=== PATIENT | female | born 1975 | race Caucasian/White ===

== ENCOUNTER → 2020-05-08 | Outpatient (CLI) | payer BC ==
[~2020-05-08] MED LIST: ANUCORT HC25 MG REC; ASPIRIN 81M81 MG/TA2 PO; CRESTOR40 MG PO; DARVOCET-N-101 UDTAB PO; FORT1000TA PO; GLUCOPHAGE1000 MG PO; IMDUR 30MG30 MG/TAB PO; JANUVIA 100MG100 MG PO; JARDIANCE10 PO; LANTUS100 U/ML SQ; LIPITOR 10MG10 MG PO; LORTAB 5/500 501 TAB PO; NAPROXEN 3375 MG/TAB PO; NEURONTIN300 MG/CAP PO; NITROSTAT0.4 MG/TAB SL; NO HOME MEDICATIONS; NOVOLOG 100U100 U/M1 SQ; OZEMPIC0.25 MG/0. SQ; PRINIVIL5 MG PO; PROTONIX 40MG T40 MG PO
== END ==
LOC: COL.LAB 10:20
DX: Z20.822 Contact with and (suspected) exposure to COVID-19 (principal)

== ENCOUNTER → 2020-07-27 | Outpatient (CLI) | payer OTHER ==
[2020-07-27 06:01] LABS: ALBUMIN 4.1 gm/dL (3.5-5.0); BILIRUBIN,TOTAL 0.3 mg/dL (0.0-1.0); CHOLESTEROL RISK RATIO 2.1; CREATININE, serum 0.53 (0.52-1.25); TOTAL PROTEIN 7.1 gm/dL (6.4-8.2)
== END ==
LOC: COL.LAB 05:26
PROVIDERS: Internal Medicine
DX: E11.65 Type 2 diabetes mellitus with hyperglycemia (principal); E78.2 Mixed hyperlipidemia

== ENCOUNTER 2020-08-08 10:21 | Emergency (ER) | payer OTHER ==
[~2020-08-08] VITALS: Ht 160 cm; Wt 80.0 kg
[2020-08-08 10:45] VITALS: TEMP 97.7
[2020-08-08 11:14] LABS: BASO % 0.4 % (0.0-2.0); EOS # 0.1 (0.0-0.7); EOS % 1.5 % (0-4.0); GRAN # 2.8 (1.4-6.5); GRAN % 61.4 % (42.2-75.2); HEMATOCRIT 37.5 % (37.0-47.0); HEMOGLOBIN 11.8 g/dl (12.5-16.0); LYMPH # 1.4 (1.2-3.4); LYMPH % 30.5 % (20.0-51.0); MEAN CELL VOLUME 83 fl (80.0-100.0); MEAN CORPUSCULAR HEMOGLOBIN 26 pg (27.0-31.0); MEAN CORPUSCULAR HGB CONC 32 g/dl (33.0-37.0); MEAN PLATELET VOLUME 10.6 fl (7.4-10.4); MONO # 0.3 (0.1-0.6); PLATELET COUNT 184 K/mm3 (130-400); RED BLOOD COUNT 4.52 M/mm3 (4.10-5.30); REDCELL DISTRIBUTION WIDTH-CV 13.1 % (11.5-14.5)
[2020-08-08 11:22] LABS: ALANINE AMINOTRANSFERASE 41 U/L (4-34); ALBUMIN 4.3 gm/dL (3.5-5.0); ALKALINE PHOSPHATASE 62 U/L (50-136); ANION GAP 11 mmol/L (7-16); AST,SGOT 41 U/L (15-37); BILIRUBIN,TOTAL 0.4 mg/dL (0.0-1.0); BLOOD UREA NITROGEN 9 mg/dL (7-17); CALCIUM 9.3 mg/dL (8.4-10.2); CARBON DIOXIDE 21 mmol/L (22-30); CHLORIDE 108 mmol/L (98-107); CREATININE, serum 0.53 (0.52-1.25); GLUCOSE 190 mg/dL (74-106); POTASSIUM 3.8 mmol/L (3.4-5.0); PROTHROMBIN TIME 11.3 SECONDS (9.7-12.8); SODIUM 140 mmol/L (137-145); TOTAL PROTEIN 7.6 gm/dL (6.4-8.2)
[2020-08-08 11:25] LABS: PARTIAL THROMBOPLASTIN TIME 30.4 SECONDS (26.0-37.0)
[2020-08-08 11:26] LABS: D-DIMER < 200.00 ng/mLDDu (200-230)
[2020-08-08 11:35] LABS: TROPONIN-I < 0.012 ng/mL (0.000-0.035)
[2020-08-08 12:30] VITALS: BP 121/80; PULSE 80
== END 2020-08-08 12:30 | disposition home or self-care (01) ==
LOC: COL.ER 10:21
PROVIDERS: Family Medicine
DX: R07.9 Chest pain, unspecified (principal); R06.02 Shortness of breath; E11.9 Type 2 diabetes mellitus without complications; Z79.4 Long term (current) use of insulin; Z20.822 Contact with and (suspected) exposure to COVID-19; Z79.82 Long term (current) use of aspirin; Z88.6 Allergy status to analgesic agent; Z87.891 Personal history of nicotine dependence

== ENCOUNTER → 2020-08-08 | Outpatient (REF) | LOC: COL.LAB 07:49 | DX: Z20.822 Contact with and (suspected) exposure to COVID-19 (principal) ==

== ENCOUNTER → 2020-10-08 | Outpatient (CLI) | payer OTHER | LOC: ZCOL.LAB 20:37 | DX: R06.02 Shortness of breath (principal) ==

== ENCOUNTER → 2020-10-09 | Outpatient (CLI) | payer OTHER ==
[2020-10-08 21:27] LABS: CALCIUM 8.9 mg/dL (8.4-10.2); CREATININE, serum 0.64 (0.52-1.25); POTASSIUM 4.3 mmol/L (3.4-5.0)
== END ==
LOC: COL.PUL 09:44
PROVIDERS: Internal Medicine Pulmonary Disease
DX: R06.02 Shortness of breath (principal); Z98.890 Other specified postprocedural states
CPT/HCPCS: Q9967

== ENCOUNTER → 2021-01-17 | Outpatient (CLI) | payer OTHER | LOC: COL.PUL 09:46 | DX: R06.02 Shortness of breath (principal); Z87.891 Personal history of nicotine dependence | CPT/HCPCS: J7674 ==

== ENCOUNTER → 2021-04-02 | Outpatient (CLI) | payer OTHER | LOC: MC.RAD 06:55 | DX: Z12.31 Encounter for screening mammogram for malignant neoplasm of breast (principal) ==

== ENCOUNTER 2021-09-17 04:34 | Emergency (ER) | payer BC ==
[~2021-09-17] VITALS: Ht 160 cm; Wt 86.4 kg
[2021-09-17 04:37] VITALS: TEMP 97.9
[2021-09-17 05:12] LABS: BASO % 0.4 % (0.0-2.0); EOS # 0.1 K/mm3 (0.0-0.7); EOS % 1.4 % (0.0-4.0); GRAN # 3.4 K/mm3 (1.4-6.5); GRAN % 49.3 % (42.2-75.2); HEMATOCRIT 39.8 % (37.0-47.0); HEMOGLOBIN 12.2 g/dl (12.5-16.0); LYMPH # 2.9 K/mm3 (1.2-3.4); LYMPH % 41.5 % (20.0-51.0); MEAN CELL VOLUME 73 fl (80.0-100.0); MEAN CORPUSCULAR HEMOGLOBIN 23 pg (27-31); MEAN CORPUSCULAR HGB CONC 31 g/dl (33.0-37.0); MEAN PLATELET VOLUME 10.6 fl (7.4-10.4); MONO # 0.5 K/mm3 (0.1-0.6); PLATELET COUNT 237 K/mm3 (130-400); RED BLOOD COUNT 5.43 M/mm3 (4.10-5.30); REDCELL DISTRIBUTION WIDTH-CV 14.1 % (11.5-14.5)
[2021-09-17 05:13] LABS: COLLECTION METHOD CLEAN CATCH
[2021-09-17 05:20] LABS: SQUAMOUS EPITHELIAL 0-2 /hpf (0-10); URINE BACTERIA Rare /hpf (NONE SEEN); URINE RBC 0-2 /hpf (0-2)
[2021-09-17 05:21] LABS: PH 5 (5-8); URINE APPEARANCE Clear (CLEAR/HAZY); URINE BLOOD Negative (NEGATIVE); URINE COLOR Yellow (YELLOW); URINE GLUCOSE 3+ (NEGATIVE); URINE KETONE Negative (NEGATIVE); URINE NITRATE Negative (NEGATIVE); URINE PROTEIN(semi-quant) Negative (NEGATIVE); URINE UROBILINOGEN Negative (NEGATIVE)
[2021-09-17 05:28] LABS: ALANINE AMINOTRANSFERASE 26 U/L (0-55); ALBUMIN 3.8 gm/dL (3.5-5.0); ALKALINE PHOSPHATASE 96 U/L (40-150); ANION GAP 12 mmol/L (7-16); AST,SGOT 21 U/L (5-34); BILIRUBIN,TOTAL 0.2 mg/dL (0.2-1.2); BLOOD UREA NITROGEN 14 mg/dL (7-19); CARBON DIOXIDE 17 mmol/L (22-29); CHLORIDE 107 mmol/L (98-107); CREATININE, serum 0.79 mg/dL (0.57-1.11); GLUCOSE 265 mg/dL (70-99); POTASSIUM 4.1 mmol/L (3.5-4.5); SODIUM 136 mmol/L (136-145); TOTAL PROTEIN 7.9 gm/dL (6.2-8.1)
[2021-09-17 05:48] LABS: TSH w REFLEX 3.477 uIU/mL (0.350-4.940)
[2021-09-17 05:49] LABS: TROPONIN-I < 0.010 ng/mL (0.00-0.033)
[2021-09-17 06:05] VITALS: BP 140/85
[2021-09-17 06:43] VITALS: PULSE 79
== END 2021-09-17 06:43 | disposition home or self-care (01) ==
LOC: COL.ER 04:34
PROVIDERS: Emergency Medicine
DX: R53.83 Other fatigue (principal); R53.81 Other malaise; E66.9 Obesity, unspecified; Z68.33 Body mass index [BMI] 33.0-33.9, adult; Z86.16 Personal history of COVID-19; Z91.040 Latex allergy status
CPT/HCPCS: J7120

== ENCOUNTER → 2022-04-03 | Outpatient (CLI) | payer BC ==
[2022-04-03 22:13] LABS: BASO % 0.5 % (0.0-2.0); EOS # 0.1 K/mm3 (0.0-0.7); EOS % 1.5 % (0.0-4.0); GRAN # 3.2 K/mm3 (1.4-6.5); GRAN % 54.5 % (42.2-75.2); HEMATOCRIT 39.8 % (37.0-47.0); HEMOGLOBIN 12.1 g/dl (12.5-16.0); LYMPH # 2.2 K/mm3 (1.2-3.4); LYMPH % 37.6 % (20.0-51.0); MEAN CELL VOLUME 75 fl (80.0-100.0); MEAN CORPUSCULAR HEMOGLOBIN 23 pg (27-31); MEAN CORPUSCULAR HGB CONC 30 g/dl (33.0-37.0); MEAN PLATELET VOLUME 11.7 fl (7.4-10.4); MONO # 0.3 K/mm3 (0.1-0.6); MONO % 5.6 % (1.7-9.3); PLATELET COUNT 265 K/mm3 (130-400); RED BLOOD COUNT 5.29 M/mm3 (4.10-5.30); REDCELL DISTRIBUTION WIDTH-CV 14.1 % (11.5-14.5)
== END ==
LOC: ZCOL.LAB 22:00
PROVIDERS: Registered Nurse
DX: D64.9 Anemia, unspecified (principal)

== ENCOUNTER → 2022-04-03 | Outpatient (CLI) | payer BC | LOC: COL.LAB 12:25 | DX: E78.5 Hyperlipidemia, unspecified (principal); R06.02 Shortness of breath ==

== ENCOUNTER → 2022-04-03 | Outpatient (CLI) | payer BC ==
[2022-04-03 13:01] LABS: ALBUMIN 4.2 gm/dL (3.5-5.0); BILIRUBIN,TOTAL 0.5 mg/dL (0.2-1.2); CHOLESTEROL RISK RATIO 6.1; CREATININE, serum 0.8 mg/dL (0.57-1.11); POTASSIUM 4.3 mmol/L (3.5-4.5); TOTAL PROTEIN 8.3 gm/dL (6.2-8.1)
== END ==
LOC: COL.LAB 12:23
PROVIDERS: Internal Medicine
DX: E11.65 Type 2 diabetes mellitus with hyperglycemia (principal); E78.2 Mixed hyperlipidemia

== ENCOUNTER → 2022-06-20 | Outpatient (CLI) | payer BC | LOC: MC.RAD 06:58 | DX: Z12.31 Encounter for screening mammogram for malignant neoplasm of breast (principal) ==

== ENCOUNTER → 2023-12-04 | Outpatient (CLI) | payer BC | LOC: MC.RAD 07:15 | DX: Z12.31 Encounter for screening mammogram for malignant neoplasm of breast (principal) ==